=== PATIENT | female | born 1990 | race Caucasian/White ===

== ENCOUNTER 2017-05-03 15:38 | Emergency (ER) | payer BC ==
[~2017-05-03] VITALS: Ht 162.6 cm; Wt 63.5 kg
[2017-05-03 16:00] VITALS: BP 86/54
--- NOTE | 2017-05-03 16:06 | Emergency Room Report ---
History of Present Illness General Chief Complaint: Overdose Source: EMS Present Illness HPI EMS was called by roommates. Apparently she's been drinking alcohol. She also claims she took 8 Tylenol tablets in an attempt to harm herself. There is no history of vomiting after ingesting the pills. No other history is available at this time. They deny any head trauma. Paramedics state MS is decreasing on way in - now not following commands. Allergies: Coded Allergies: UNABLE TO ASSESS (Unverified , 05/03/17) Patient History Limited by: medical condition Past Medical History: see triage record Social History: Reports: alcohol use, drug use Social History Narrative with roommates Reviewed Nursing Documentation: PMH: Agreed, PSxH: Agreed Nursing Documentation-PMH Past Medical History Deferred: Pt Cognitively Impaired Past Medical History: Deferred Review of Systems All Other Systems: limited Physical Exam Vital Signs Date Time Temp Pulse Resp B/P (MAP) Pulse Ox O2 Delivery O2 Flow Rate FiO2 05/03/17 15:35 90 18 122/80 99 Room Air Sp02 EP Interpretation: reviewed, normal General Appearance: lethargic, Stupor Head: normocephalic Eyes: bilateral eye abnormal EOM - nystagmus, bilateral eye Scleral Injection ENT: moist mucus membranes - + gag Neck: supple Respiratory: lungs clear, normal breath sounds Cardiovascular #1: regular rate, rhythm Cardiovascular #2: 2+ radial (R) Gastrointestinal: normal inspection, normal bowel sounds, non tender, no mass, non-distended Musculoskeletal: back normal, other - no deformity Neurologic: other - stupor with + gag, min response to pain Psychiatric: other - stupor Reflexes: 1+ knee (R), 1+ knee (L) Skin: normal inspection, warm/dry, other - tattoos Medical Decision Making Diagnostic Impression: Primary Impression: Suicide gesture Qualified Codes: X83.8XXA - Intentional self-harm by other specified means, initial encounter Additional Impressions: Drug overdose Qualified Codes: T50.902A - Poisoning by unspecified drugs, medicaments and biological substances, intentional self-harm, initial encounter Depression Qualified Codes: F32.9 - Major depressive disorder, single episode, unspecified Suspected borderline personality disorder ER Course The patient presents with stupor and lethargy after alcohol ingestion and reported Tylenol. Differential includes polypharmacy pharmacy excess, alcohol intoxication, suicide gesture amongst others. She needs to be stabilized medically. This will involve IV hydration and thiamine. Evaluation will be with the chest x-ray and labs. When she is more awake we will evaluate her psychiatric status. The patient does have a gag reflex and does not require intubation at this time. Patient more alert. She pulled out IV. Friend is here with her and states concern over suicide gesture. Patient is more alert but still has nystagmus. She denies suicidal ideation at this time or suicidal intent but cannot give an answer as to why she took the Tylenol. The patient still requires observation and she still intoxicated. Will continue observing the patient and reevaluate her when she is sober. She may need psychiatric evaluation in the morning. Transiently hypotensive. Bolus NS with improved VS. The patient is signed out to Dr. Helm. Patient threatens to leave. She does not remember the previous evaluations. She directly states to me that her purpose was to try and kill herself. She was told she was in a coma when she came in but states that she wished that she was successful at killing herself. She states she has felt intermittently suicidal since age 4. She is tired of life and wants to end hers. I discussed the fact that she did not have the right to take her life. I told her that her rights were taken away from her and that she needs to be observed and evaluated by psychiatrist in the morning. She requested sedation at this time as opposed to being restrained. Haldol and benadryl ordered as she has benzodiazepines and alcohol in system. Dr. Helm updated. Laboratory Tests Test 05/03/17 15:56 White Blood Count 6.9 K/UL (4.8-10.8) Red Blood Count 4.17 M/UL (4.20-5.40) L Hemoglobin 13.7 G/DL (12.0-16.0) Hematocrit 40.5 % (37.0-47.0) Mean Corpuscular Volume 97 FL (80-99) Mean Corpuscular Hemoglobin 32.7 PG (27.0-31.0) H Mean Corpuscular Hemoglobin Concent 33.7 G/DL (32.0-36.0) Red Cell Distribution Width 11.5 % (11.6-14.8) L Platelet Count 251 K/UL (150-450) Mean Platelet Volume 7.2 FL (6.5-10.1) Neutrophils (%) (Auto) 57.4 % (45.0-75.0) Lymphocytes (%) (Auto) 33.2 % (20.0-45.0) Monocytes (%) (Auto) 7.4 % (1.0-10.0) Eosinophils (%) (Auto) 1.2 % (0.0-3.0) Basophils (%) (Auto) 0.8 % (0.0-2.0) Urine Color Pale yellow Urine Appearance Clear Urine pH 7 (4.5-8.0) Urine Specific [place] 1.010 (1.005-1.035) Urine Protein Negative (NEGATIVE) Urine Glucose (UA) Negative (NEGATIVE) Urine Ketones Negative (NEGATIVE) Urine Occult Blood Negative (NEGATIVE) Urine Nitrite Negative (NEGATIVE) Urine Bilirubin Negative (NEGATIVE) Urine Urobilinogen Normal MG/DL (0.0-1.0) Urine Leukocyte Esterase 3+ (NEGATIVE) H Urine RBC 0-2 /HPF (0 - 2) Urine WBC 2-4 /HPF (0 - 2) Urine Squamous Epithelial Cells Moderate /LPF (NONE/OCC) H Urine Amorphous Sediment Few /LPF (NONE) H Urine Bacteria Few /HPF (NONE) Urine HCG, Qualitative Negative Sodium Level 146 MMOL/L (136-145) H Potassium Level 3.3 MMOL/L (3.5-5.1) L Chloride Level 109 MMOL/L (98-107) H Carbon Dioxide Level 27 MMOL/L (21-32) Anion Gap 10 mmol/L (5-15) Blood Urea Nitrogen 7 mg/dL (7-18) Creatinine 0.7 MG/DL (0.55-1.30) Estimate Glomerular Filtration Rate > 60 mL/min (>60) Glucose Level 92 MG/DL (74-106) Calcium Level 8.8 MG/DL (8.5-10.1) Total Bilirubin 0.2 MG/DL (0.2-1.0) Aspartate Amino Transferase (AST) 19 U/L (15-37) Alanine Aminotransferase (ALT) 13 U/L (12-78) Alkaline Phosphatase 61 U/L (46-116) Total Protein 7.2 G/DL (6.4-8.2) Albumin 4.1 G/DL (3.4-5.0) Globulin 3.1 g/dL Albumin/Globulin Ratio 1.3 (1.0-2.7) Salicylates Level 0.7 ug/mL (2.8-20) L Urine Opiates Screen Negative (NEGATIVE) Acetaminophen Level < 10 MCG/ML (10-30) L Urine Barbiturates Screen Negative (NEGATIVE) Phencyclidine (PCP) Screen Negative (NEGATIVE) Urine Amphetamines Screen Negative (NEGATIVE) Urine Benzodiazepines Screen Positive (NEGATIVE) H Urine Cocaine Screen Negative (NEGATIVE) Urine Marijuana (THC) Screen Negative (NEGATIVE) Serum Alcohol 97 mg/dL EKG Diagnostic Results Rate: tachycardiac ST Segments: no acute changes Rhythm Strip Diag. Results EP Interpretation: yes Rhythm: no PVC's, no ectopy, other - Sinus tachycardia Chest X-Ray Diagnostic Results Chest X-Ray Diagnostic Results : Chest X-Ray Ordered: Yes # of Views/Limited/Complete: 1 View Indication: Other Interpretation: no consolidation, no effusion, no pneumothorax, no acute cardiopulmonary disease Impression: No acute disease Electronically Signed by: Electronically signed by Ronaldo Eddy MD Last Vital Signs Date Time Temp Pulse Resp B/P (MAP) Pulse Ox O2 Delivery O2 Flow Rate FiO2 05/04/17 00:00 98.2 102 21 96/62 96 Room Air Status: improved Ronaldo Eddy M.D. May 03, 2017 16:06
[2017-05-03 16:15] LABS: BASOPHILS % (AUTO) 0.8 % (0.0-2.0); EOSINOPHILS % (AUTO) 1.2 % (0.0-3.0); HEMATOCRIT 40.5 % (37.0-47.0); HEMOGLOBIN 13.7 G/DL (12.0-16.0); LYMPHOCYTES % (AUTO) 33.2 % (20.0-45.0); MEAN CORPUSCULAR VOLUME 97 FL (80-99); MONOCYTES % (AUTO) 7.4 % (1.0-10.0); NEUTROPHILS % (AUTO) 57.4 % (45.0-75.0); PLATELET COUNT 251 K/UL (150-450); RED BLOOD COUNT 4.17 M/UL (4.20-5.40); RED CELL DISTRIBUTION WIDTH 11.5 % (11.6-14.8); WHITE BLOOD COUNT 6.9 K/UL (4.8-10.8)
[2017-05-03] MEDS ORDERED: Thiamine HCl 100 MG in D5W 55 ML IVPB SCH (16:15)
[2017-05-03 16:20] LABS: APPEARANCE,URINE CLEAR; BILIRUBIN, URINE NEGATIVE (NEGATIVE); COLOR,URINE PALE YELLOW; GLUCOSE, URINE (UA) NEGATIVE (NEGATIVE); KETONES,URINE NEGATIVE (NEGATIVE); LEUKOCYTE ESTERASE ,URINE 3+ (NEGATIVE); NITRITE,URINE NEGATIVE (NEGATIVE); PH,URINE 7 (4.5-8.0); PROTEIN,URINE NEGATIVE (NEGATIVE); UROBILINOGEN,URINE NORMAL MG/DL (0.0-1.0)
[2017-05-03 16:30] LABS: ALANINE AMINOTRANSFERASE 13 U/L (12-78); ALBUMIN 4.1 G/DL (3.4-5.0); ALBUMIN/GLOBULIN RATIO 1.3 (1.0-2.7); ALKALINE PHOSPHATASE 61 U/L (46-116); ANION GAP 10 mmol/L (5-15); ASPARTATE AMINO TRANSFERASE 19 U/L (15-37); BILIRUBIN,TOTAL 0.2 MG/DL (0.2-1.0); BLOOD UREA NITROGEN 7 mg/dL (7-18); CALCIUM 8.8 MG/DL (8.5-10.1); CARBON DIOXIDE 27 MMOL/L (21-32); CHLORIDE 109 MMOL/L (98-107); CREATININE 0.7 MG/DL (0.55-1.30); POTASSIUM 3.3 MMOL/L (3.5-5.1); SODIUM 146 MMOL/L (136-145)
--- NOTE | 2017-05-03 16:56 | Diagnostic Imaging Report ---
Indication: Shortness of breath Technique: One view of the chest Comparison: none Findings: Lungs and pleural spaces are clear. Heart size is normal Impression: No acute process
[2017-05-03] MEDS ORDERED: Thiamine HCl 100mg/ml 2 ml Inj ONE (17:46)
[2017-05-03 18:30] VITALS: BP 88/50
[2017-05-03 22:00] VITALS: BP 100/67
[2017-05-04] VITALS: BP 96/62
[2017-05-04] MEDS ORDERED: DiphenhydrAMINE 50mg/ml Inj IVP ONE (00:45)
[2017-05-04] MEDS ORDERED: Haloperidol 5mg/ml Inj IM ONE (00:45)
[2017-05-04] MEDS ORDERED: Haloperidol 5mg/ml Inj ONE (01:07)
[2017-05-04] MEDS ORDERED: DiphenhydrAMINE 50mg/ml Inj ONE (01:09)
[2017-05-04 04:43] VITALS: BP 100/61
[2017-05-04 04:44] VITALS: BP 97/58
[2017-05-04 06:25] VITALS: BP 106/71
[2017-05-04 07:05] VITALS: BP 100/67
[2017-05-04] MEDS ORDERED: ALPRAZOLAM1 MG ORAL (09:06)
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
[2017-05-04 13:00] VITALS: BP 124/75
--- NOTE | 2017-05-04 14:41 | Cardiology Report ---
APPROVED REPORT EKG Measurement Heart [id number] Sinus tachycardia Right axis deviation Cannot rule out Inferior infarct, age undetermined Abnormal ECG
--- NOTE | 2017-05-04 14:41 | Cardiology Report ---
APPROVED REPORT EKG Measurement Heart [id number] Sinus tachycardia Right axis deviation Cannot rule out Inferior infarct, age undetermined Abnormal ECG
--- NOTE | 2017-05-04 14:41 | Cardiology Report ---
APPROVED REPORT EKG Measurement Heart [id number] [place] [id number] Sinus tachycardia Right axis deviation Cannot rule out Inferior infarct, age undetermined Abnormal ECG
== END 2017-05-04 13:00 | disposition home or self-care (01) ==
LOC: EDBD 15:38 → EMR 16:01
DX: T39.1X2A Poisoning by 4-Aminophenol derivatives, intentional self-harm, initial encounter (principal); Y92.89 Other specified places as the place of occurrence of the external cause; F32.9 Major depressive disorder, single episode, unspecified; T51.92XA Toxic effect of unspecified alcohol, intentional self-harm, initial encounter; R40.1 Stupor; R53.83 Other fatigue; R06.02 Shortness of breath
CPT/HCPCS: 36415; 71010; 80053; 80307; 81003; 81025; 85025; 93005; 96361; 96372; 96374; 96375; 99285; G0480; J1200; J1630; J2405; S0028; 80329